=== PATIENT | male | born 1960 | race Caucasian/White ===

== ENCOUNTER 2019-06-28 08:55 | Emergency (ER) | payer BC ==
[2019-06-28] MEDS ORDERED: Labetalol 100 MG/20 ML MDV IVPUSH ONE (09:06)
[2019-06-28] MEDS ORDERED: Sodium Chloride 0.9% 2.5 ML Syringe FLUSH PRN (09:06)
[2019-06-28] MEDS ORDERED: Sodium Chloride 0.9% 10 ML Syringe FLUSH PRN (09:06)
--- NOTE | 2019-06-28 09:24 | EDM.PDOC ---
ED HPI GENERAL MEDICAL PROBLEM - General Chief Complaint: Cardiovascular Problem Stated Complaint: DIZZY Time Seen by Provider: 06/28/19 08:57 Source of Information: Reports: Patient History Limitations: Reports: No Limitations - History of Present Illness INITIAL COMMENTS - FREE TEXT/NARRATIVE: History of present illness: []Patient started having some lightheaded dizziness yesterday that has continued today. He has a frontal headache denies any trauma, change in vision, nausea, vomiting, numbness, tingling, chest pain or shortness of breath. Patient states he may have missed a blood pressure dose of medication 2 days ago. Took his blood pressure yesterday when he had symptoms and he noted that it was 120;s/ 80's. Review of systems: As per history of present illness and below otherwise all systems reviewed and negative. Past medical history: As per history of present illness and as reviewed below otherwise noncontributory. Surgical history: As per history of present illness and as reviewed below otherwise noncontributory. Social history: No reported history of drug or alcohol abuse. Family history: As per history of present illness and as reviewed below otherwise noncontributory. Physical exam: General: Well developed, well nourished in NAD HEENT: Atraumatic, normocephalic, pupils reactive, negative for conjunctival pallor or scleral icterus, mucous membranes moist, throat clear, neck supple, nontender, trachea midline. Lungs: Clear to auscultation, breath sounds equal bilaterally, chest nontender. Heart: S1S2, regular, negative for clicks, rubs, or JVD. Abdomen: NABS, Soft, nondistended, nontender. Negative for masses or hepatosplenomegaly. Negative for costovertebral tenderness. Pelvis: Stable nontender. Genitourinary: Deferred. Rectal: Deferred. Extremities: Atraumatic, negative for cords or calf pain. Neurovascular unremarkable. Neuro: Awake, alert, oriented. Cranial nerves II through XII unremarkable. Cerebellum unremarkable. Motor and sensory unremarkable throughout. Exam nonfocal. Skin:warm and dry Diagnostics: CT head, EKG, CBC, chemistry, troponin Therapeutics: Labetalol ED Course: improved, sx resolved with decrease in BP, Patient ambulated without symptoms. Impression: Uncontrolled hypertension Prescriptions: none Plan: Take meds as directed, follow up with your primary care physician, return to ER if symptoms worsen or change. Definitive disposition and diagnosis as appropriate pending reevaluation and review of above. - Related Data Allergies Allergy/AdvReac Type Severity Reaction Status Date / Time Penicillins Allergy Rash Verified 06/28/19 08:59 Past Medical History Cardiovascular History: Reports: High Cholesterol, Hypertension Respiratory History: Reports: Asthma - Infectious Disease History Infectious Disease History: Reports: Chicken Pox - Past Surgical History Musculoskeletal Surgical History: Reports: Arthroscopic Procedure Social & Family History - Family History Family Medical History: Noncontributory - Tobacco Use Smoking Status *Q: Never Smoker Second Hand Smoke Exposure: No - Caffeine Use Caffeine Use: Reports: Coffee - Recreational Drug Use Recreational Drug Use: No ED ROS GENERAL - Review of Systems Review Of Systems: See Below ED EXAM, GENERAL - Physical Exam Exam: See Below Course - Vital Signs Last Recorded V/S: Last Vital Signs Temp 96.9 F 06/28/19 08:59 Pulse 62 06/28/19 10:31 Resp 18 06/28/19 10:31 BP 154/102 H 06/28/19 10:31 Pulse Ox 96 06/28/19 10:31 - Orders/Labs/Meds Orders: Active Orders 24 hr Category Date Time Status Cardiac Monitoring [RC] . DIRECTED Care 06/28/19 09:05 Active EKG Documentation Completion [RC] STAT Care 06/28/19 09:05 Active Sodium Chloride 0.9% [Saline Flush] Med 06/28/19 09:06 Active 10 ml FLUSH ASDIRECTED PRN Sodium Chloride 0.9% [Saline Flush] Med 06/28/19 09:06 Active 2.5 ml FLUSH ASDIRECTED PRN Saline Lock Insert [OM.PC] Stat Oth 06/28/19 09:05 Ordered Medication Orders Sodium Chloride (Saline Flush) 10 ml FLUSH ASDIRECTED PRN PRN Reason: Keep Vein Open Last Admin: 06/28/19 09:12 Dose: 10 ml Sodium Chloride (Saline Flush) 2.5 ml FLUSH ASDIRECTED PRN PRN Reason: Keep Vein Open Last Admin: 06/28/19 09:12 Dose: 2.5 ml Labs: Laboratory Tests 06/28/19 06/28/19 Range/Units 09:00 09:00 WBC 8.16 (4.0-11.0) K/uL RBC 5.17 (4.50-5.90) M/uL Hgb 16.2 (13.0-17.0) g/dL Hct 47.8 (38.0-50.0) % MCV 92.5 (80.0-98.0) fL MCH 31.3 (27.0-32.0) pg MCHC 33.9 (31.0-37.0) g/dL RDW Std Deviation 45.5 (28.0-62.0) fl RDW Coeff of Rolanda 13 (11.0-15.0) % Plt Count 266 (150-400) K/uL MPV 10.50 (7.40-12.00) fL Neut % (Auto) 61.2 (48.0-80.0) % Lymph % (Auto) 19.9 (16.0-40.0) % [place] % (Auto) 12.3 (0.0-15.0) % Eos % (Auto) 6.1 (0.0-7.0) % Baso % (Auto) 0.5 (0.0-1.5) % Neut # (Auto) 5.0 (1.4-5.7) K/uL Lymph # (Auto) 1.6 (0.6-2.4) K/uL [place] # (Auto) 1.0 H (0.0-0.8) K/uL Eos # (Auto) 0.5 (0.0-0.7) K/uL Baso # (Auto) 0.0 (0.0-0.1) K/uL Nucleated RBC % 0.0 /100WBC Nucleated RBCs # 0 K/uL Sodium 143 (136-148) mmol/L Potassium 4.3 (3.5-5.1) mmol/L Chloride 105 (98-107) mmol/L Carbon Dioxide 28.8 (21.0-32.0) mmol/L BUN 20 H (7.0-18.0) mg/dL Creatinine 1.0 (0.8-1.3) mg/dL Est Cr Clr Drug Dosing 83.14 mL/min Estimated GFR (MDRD) > 60.0 ml/min Glucose 96 (74-106) mg/dL Calcium 9.0 (8.5-10.1) mg/dL Total Bilirubin 0.4 (0.2-1.0) mg/dL AST 33 (15-37) IU/L ALT 43 (14-63) IU/L Alkaline Phosphatase 88 (46-116) U/L Troponin I < 0.050 (0.000-0.056) ng/mL Total Protein 7.7 (6.4-8.2) g/dL Albumin 3.9 (3.4-5.0) g/dL Globulin 3.8 (2.6-4.0) g/dL Albumin/Globulin Ratio 1.0 (0.9-1.6) Meds: Medications Generic Name Dose Route Start Last Admin Trade Name Freq PRN Reason Stop Dose Admin Sodium Chloride 10 ml 06/28/19 09:06 06/28/19 09:12 Saline Flush FLUSH 10 ml ASDIRECTED PRN Administration Keep Vein Open Sodium Chloride 2.5 ml 06/28/19 09:06 06/28/19 09:12 Saline Flush FLUSH 2.5 ml ASDIRECTED PRN Administration Keep Vein Open Discontinued Medications Generic Name Dose Route Start Last Admin Trade Name Freq PRN Reason Stop Dose Admin Labetalol HCl 20 mg 06/28/19 09:06 06/28/19 09:12 Normodyne IVPUSH 06/28/19 09:07 4 ml ONETIME ONE Administration Protocol Departure - Departure Time of Disposition: 10:36 Disposition: Home, Self-Care 01 Condition: Good Clinical Impression: Uncontrolled hypertension Referrals: PCP,Unknown [Primary Care Provider] - Forms: ED Department Discharge Additional Instructions: The following information is given to patients seen in the emergency department who are being discharged to home. This information is to outline your options for follow-up care. We provide all patients seen in our emergency department with a follow-up referral. The need for follow-up, as well as the timing and circumstances, are variable depending upon the specifics of your emergency department visit. If you don't have a primary care physician on staff, we will provide you with a referral. We always advise you to contact your personal physician following an emergency department visit to inform them of the circumstance of the visit and for follow-up with them and/or the need for any referrals to a consulting specialist. The emergency department will also refer you to a specialist when appropriate. This referral assures that you have the opportunity for follow-up care with a specialist. All of these measure are taken in an effort to provide you with optimal care, which includes your follow-up. Under all circumstances we always encourage you to contact your private physician who remains a resource for coordinating your care. When calling for follow-up care, please make the office aware that this follow-up is from your recent emergency room visit. If for any reason you are refused follow-up, please contact the [facility] Emergency Department at and asked to speak to the emergency department charge nurse. Follow-up with primary care as week as previously scheduled. [facility] [address] [place] [id number] - My Orders Last 24 Hours: My Active Orders 06/28/19 09:05 Cardiac Monitoring [RC] . DIRECTED EKG Documentation Completion [RC] STAT Saline Lock Insert [OM.PC] Stat 06/28/19 09:06 Sodium Chloride 0.9% [Saline Flush] 10 ml FLUSH ASDIRECTED PRN Sodium Chloride 0.9% [Saline Flush] 2.5 ml FLUSH ASDIRECTED PRN - Assessment/Plan Last 24 Hours: My Active Orders 06/28/19 09:05 Cardiac Monitoring [RC] . DIRECTED EKG Documentation Completion [RC] STAT Saline Lock Insert [OM.PC] Stat 06/28/19 09:06 Sodium Chloride 0.9% [Saline Flush] 10 ml FLUSH ASDIRECTED PRN Sodium Chloride 0.9% [Saline Flush] 2.5 ml FLUSH ASDIRECTED PRN
--- NOTE | 2019-06-28 09:27 | CR ---
INDICATION: Chest pain. Shortness of breath. COMPARISON: none TECHNIQUE: Portable AP erect chest performed at 9:16 a.m. FINDINGS: The lungs are clear. There is no evidence of pneumothorax. The heart, mediastinum and pulmonary vessels are of normal size. There is no evidence of pleural fluid. IMPRESSION: Negative chest. Dictated by Ezekiel Dawson MD @ Jun 28 2019 9:26AM Signed by Dr. Ezekiel Dawson @ Jun 28 2019 9:27AM
--- NOTE | 2019-06-28 09:49 | CT ---
INDICATION: Dizziness and nausea which started yesterday. TECHNIQUE: Scanning of the head was performed without IV contrast material. Coronal sagittal reconstructions were obtained. COMPARISON: None. FINDINGS: No acute hemorrhage, parenchymal attenuation abnormality, or mass effect is demonstrated. Differentiation between the gautam matter and white matter is preserved. The ventricles and other subarachnoid spaces are within normal limits. No calvarial abnormality is evident. Nodular membrane thickening is present in both maxillary and ethmoid sinuses. Nasal polyps are noted bilaterally. The frontal and sphenoid sinuses are clear as are the mastoids. Mild leftward deviation of the mid nasal septum is noted with a large left-sided nasal septal spur. IMPRESSION: 1. Negative noncontrast head CT. 2. Nasal polyposis as well as nodular membrane thickening in both maxillary and ethmoid sinuses. 3. Mild leftward deviation of the mid nasal septum and large left-sided nasal septal spur. Please note that all CT scans at this facility use dose modulation, iterative reconstruction, and/or weight-based dosing when appropriate to reduce radiation dose to as low as reasonably achievable. Dictated by Puma More MD @ Jun 28 2019 9:41AM Signed by Dr. Puma More @ Jun 28 2019 9:47AM
[2019-06-28 10:19] LABS: BLOOD UREA NITROGEN,BUN 20 mg/dL (7.0-18.0); CARBON DIOXIDE,CO2 28.8 mmol/L (21.0-32.0); CHLORIDE,CL 105 mmol/L (98-107); GLUCOSE RANDOM 96 mg/dL (74-106); POTASSIUM,K 4.3 mmol/L (3.5-5.1); SODIUM,NA 143 mmol/L (136-148)
== END 2019-06-28 10:53 | disposition home or self-care (01) ==
LOC: MW.ED 08:55
DX: I10 Essential (primary) hypertension (principal); Z88.0 Allergy status to penicillin
CPT/HCPCS: 36415; 70450; 71045; 80053; 84484; 85025; 93005; 96374; 99284; J3490